=== PATIENT | female | born 1980 | race Caucasian/White ===

== ENCOUNTER → 2017-07-29 | Outpatient (CLI) | payer BC ==
[2017-07-29 11:56] LABS: Basophils % (A) 0 %; CH 30.6; CHCM 31.8; Eosinophils # (A) 0.3 k/uL (0-0.7); Eosinophils % (A) 3 %; HCT 41.3 % (34.0-46.0); HDW 2.16; HGB 13.4 gm/dL (11.4-16.0); Luc # (Auto) 0.17; Luc % (Auto) 2; Lymphocytes # (A) 3.4 k/uL (1.0-4.8); Lymphocytes % (A) 33 %; MCH 31.4 pg (25.0-35.0); MCHC 32.5 g/dL (31.0-37.0); MCV 96.7 fL (80.0-100.0); Mean Platelet Volume 9.9; Monocytes # (A) 0.4 k/uL (0-1.0); Monocytes % (A) 3 %; Neutrophils # (A) 6.1 k/uL (1.3-7.7); Neutrophils % (A) 59 %; RBC 4.27 m/uL (3.80-5.40); RDW 14.8 % (11.5-15.5); WBC 10.3 k/uL (3.8-10.6); WBC (Perox) 10.63
== END | disposition home or self-care (01) ==
LOC: LABPAT 11:10
PROVIDERS: ATTEND Obstetrics & Gynecology Obstetrics
DX: Z01.812 Encounter for preprocedural laboratory examination (principal); N94.6 Dysmenorrhea, unspecified; N92.0 Excessive and frequent menstruation with regular cycle
CPT/HCPCS: 85025

== ENCOUNTER 2017-08-04 09:00 | Day surgery (SDC) | payer BC ==
[2017-07-31 12:07] VITALS: BMI 30.2
[~2017-08-04 09:00] MED LIST: LACTATED RINGERS 1,000 ML IV ONE; MORPHINE SULFATE 10 MG/ML SYRINGE IV PRN; ONDANSETRON 4 MG/2 ML VIAL IVP PRN; Pre Op ABX Message 1 EACH MISC MISCELLANE ONE
[2017-08-04 09:28] VITALS: RESP 16
[2017-08-04] MEDS ORDERED: LIDOCAINE 1% 20 ML VIAL (10MG/ML) FOR IV START INTRADERMA ONE (09:28)
[2017-08-04] MEDS ORDERED: MIDAZOLAM 2 MG/2 ML VIAL ONE (10:30)
[2017-08-04] MEDS ORDERED: PROPOFOL 10 MG/ML 20 ML VIAL IV ONE (10:30)
[2017-08-04] MEDS ORDERED: KETOROLAC 30 MG/ML 1 ML VIAL ONE (10:30)
[2017-08-04] MEDS ORDERED: LIDOCAINE 1% INJ 10MG/ML (20 ML MDV) ONE (10:30)
[2017-08-04] MEDS ORDERED: fentaNYL (PF) 50 MCG/ML 2 ML AMP ONE (10:30)
[2017-08-04] MEDS ORDERED: IBUPROFEN 600 MG TAB PO PRN (10:34)
--- NOTE | 2017-08-04 10:54 | P.OP ---
Date of Procedure: 08/04/17 Preoperative Diagnosis: Menorrhagia, dysmenorrhea Postoperative Diagnosis: Same Surgeon: Nannette Cerrato Estimated Blood Loss (ml): 10 IV fluids (ml): 200 Urine output (ml): 25 Pathology: other (Endometrial curettings) Condition: stable Disposition: PACU Indications for Procedure: Menorrhagia, dysmenorrhea. Ultrasound done prior to surgery revealed a normal- size uterus of 8 cm Operative Findings: Normal proliferative endometrium with normal-appearing ostia Description of Procedure: Patient with significant operating room where general anesthesia was obtained without difficulty. She was prepped and draped in normal sterile fashion in the dorsal lithotomy position. A weighted speculum was placed in the posterior vaginal vault and the bladder was drained with a red rubber catheter. Partially 25 mL of clear yellow urine was obtained. The anterior lip of the cervix was visualized and grasped with a single-tooth tenaculum. The endocervical canal was then dilated and hysteroscopy was performed. A normal- appearing proliferative endometrial cavity was noted the ostia were normal in appearance. No fibroids or polyps are appreciated. Sharp curettage was then performed until gritty texture was noted in all 4 quadrants the uterine cavity. This was then sent to pathology for analysis. The NovaSure device was then opened and performed in the usual fashion. With a cycle length of 2 minutes and a power of 103. After the cycle was complete the device was removed without difficulty. The single-tooth tenaculum was taken off the anterior cervix hemostasis was appreciated all instrument so then removed from the patient's vaginal vault. Patient tolerated procedure well was taken the recovery room awake and in stable condition.
[2017-08-04 11:05] VITALS: TEMP 97.3
[2017-08-04] MEDS: HYDROmorphone 1 MG/ML 1 ML SYRINGE IVP ONE ×2 (11:25→11:39)
[2017-08-04 12:55] VITALS: BP 129/73; PULSE 61
== END 2017-08-04 13:20 | disposition home or self-care (01) ==
LOC: OR 09:00
PROVIDERS: ATTEND Obstetrics & Gynecology Obstetrics
DX: N92.0 Excessive and frequent menstruation with regular cycle (principal); N94.6 Dysmenorrhea, unspecified; R39.15 Urgency of urination; J45.909 Unspecified asthma, uncomplicated; G56.00 Carpal tunnel syndrome, unspecified upper limb; K63.9 Disease of intestine, unspecified; L25.9 Unspecified contact dermatitis, unspecified cause; N80.9 Endometriosis, unspecified; K21.9 Gastro-esophageal reflux disease without esophagitis; N73.9 Female pelvic inflammatory disease, unspecified; L57.0 Actinic keratosis; Z88.0 Allergy status to penicillin; Z88.1 Allergy status to other antibiotic agents; Z91.030 Bee allergy status; Z79.899 Other long term (current) drug therapy; F17.200 Nicotine dependence, unspecified, uncomplicated
CPT/HCPCS: 81025; 88305; 58558; J2250; J2405; J2001; J3010; J1885; J1170; J2704

== ENCOUNTER 2018-02-02 13:16 | Emergency (ER) | payer BC, OTHER ==
[2018-02-02 13:42] VITALS: BP 112/52; PULSE 83; RESP 18; TEMP 98
--- NOTE | 2018-02-02 13:57 | ED ---
Lower Extremity Injury HPI - General Chief Complaint: Extremity Injury, Lower Stated Complaint: leg injury-[facility] Time Seen by Provider: 02/02/18 13:42 Source: patient, RN notes reviewed, old records reviewed Mode of arrival: ambulatory Limitations: no limitations - History of Present Illness Initial Comments: This is a 37-year-old female presents emergency room for evaluation for left leg pain. 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 Patient reports pain with flexion and extension of her foot. Patient reports that the pain is mainly over the medial aspect of the calf. She denies any numbness or tingling. She reports swelling and pressure. - Related Data Home Medications Medication Instructions Recorded Confirmed Dextroamphetamine/Amphetamine 30 mg PO DAILY 07/31/17 02/02/18 [Adderall] PARoxetine [Paxil] 20 mg PO QAM 07/31/17 02/02/18 Previous Rx's Medication Instructions Recorded Acetaminophen-Codeine 300-30mg 1 tab PO Q4H PRN 3 Days #18 tablet 02/02/18 [Tylenol w/codeine #3] Ibuprofen [Motrin] 600 mg PO Q8HR PRN #20 tab 02/02/18 Allergies Allergy/AdvReac Type Severity Reaction Status Date / Time amoxicillin Allergy Unknown Verified 02/02/18 14:02 Penicillins Allergy Unknown Verified 02/02/18 14:02 bees Allergy Anaphylaxis Uncoded 02/02/18 13:43 Review of Systems ROS Statement: Those systems with pertinent positive or pertinent negative responses have been documented in the HPI. ROS Other: All systems not noted in ROS Statement are negative. Past Medical History Past Medical History: GERD/Reflux History of Any Multi-Drug Resistant Organisms: None Reported Past Surgical History: Tubal Ligation Additional Past Surgical History / Comment(s): D&C, colonoscopies x4. Past Anesthesia/Blood Transfusion Reactions: No Reported Reaction Past Psychological History: ADD/ADHD, Depression Smoking Status: Current every day smoker Past Alcohol Use History: None Reported Past Drug Use History: None Reported - Past Family History Mother Family Medical History: No Reported History General Exam - General Exam Comments Initial Comments: 37-year-old female. Alert. No acute distress. Limitations: no limitations General appearance: alert, in no apparent distress Head exam: Present: atraumatic, normocephalic, normal inspection Eye exam: Present: normal appearance, PERRL, EOMI. Absent: scleral icterus, conjunctival injection, periorbital swelling ENT exam: Present: normal exam, mucous membranes moist Neck exam: Present: normal inspection. Absent: tenderness, meningismus, lymphadenopathy Respiratory exam: Present: normal lung sounds bilaterally. Absent: respiratory distress, wheezes, rales, rhonchi, stridor Cardiovascular Exam: Present: regular rate, normal rhythm, normal heart sounds. Absent: systolic murmur, diastolic murmur, rubs, gallop, clicks GI/Abdominal exam: Present: soft, normal bowel sounds. Absent: distended, tenderness, guarding, rebound, rigid Left Lower Leg exam: Present: full ROM, swelling (Patient has tenderness over the medial gastrocnemius muscle). Absent: normal inspection, tenderness, abrasion Ankle exam: Present: normal inspection, full ROM Foot/Toe exam: Present: normal inspection, full ROM Neurovascular tendon exam: Present: no vascular compromise Gait: observed and limited by pain Back exam: Present: normal inspection Course Vital Signs 02/02/18 13:28 Temperature 98.0 F Pulse Rate 83 Respiratory 18 Rate Blood Pressure 112/52 O2 Sat by Pulse 97 Oximetry Disposition Clinical Impression: Gastrocnemius strain, left Disposition: HOME SELF-CARE Condition: Good Instructions: Tendon Rupture (ED) Additional Instructions: Patient has a follow-up with process laboratory specialist. Remain in the splint. Anne with crutches. Take anti-inflammatory medication pain medication. Return to the emergency department if any alarming signs or symptoms occur. Prescriptions: Acetaminophen-Codeine 300-30mg [Tylenol w/codeine #3] 1 tab PO Q4H PRN 3 Days # 18 tablet PRN Reason: Pain Ibuprofen [Motrin] 600 mg PO Q8HR PRN #20 tab PRN Reason: Pain Is patient prescribed a controlled substance at d/c from ED?: No If prescribed controlled substance>3 days was MAPS reviewed?: No When asked, does pt state using other controlled substances?: No Referrals: Milton Bravo MD [Primary Care Provider] - 1-2 days Jett Jean DO [Doctor of Osteopathic Medicine] - 1-2 days Time of Disposition: 15:00
--- NOTE | 2018-02-02 14:20 | XR ---
EXAMINATION TYPE: XR tibia fibula LT DATE OF EXAM: 02/02/2018 COMPARISON: NONE HISTORY: 37-year-old female with pain TECHNIQUE: 2 views FINDINGS: No acute fracture. Knee and ankle articulations appear grossly intact. IMPRESSION: No acute osseous abnormality seen. If soft tissue assessment is indicated, MRI can be performed.
== END 2018-02-02 15:17 | disposition home or self-care (01) ==
LOC: EC 13:16
DX: S86.812A Strain of other muscle(s) and tendon(s) at lower leg level, left leg, initial encounter (principal); F90.9 Attention-deficit hyperactivity disorder, unspecified type; F32.9 Major depressive disorder, single episode, unspecified; F17.200 Nicotine dependence, unspecified, uncomplicated; Z88.0 Allergy status to penicillin; Z91.030 Bee allergy status; Z79.899 Other long term (current) drug therapy; X50.9XXA Other and unspecified overexertion or strenuous movements or postures, initial encounter; Y93.F9 Activity, other caregiving; Y99.0 Civilian activity done for income or pay
CPT/HCPCS: 99284

== ENCOUNTER 2018-02-08 02:07 | Emergency (ER) | payer BC ==
[2018-02-08 02:16] VITALS: RESP 16
[2018-02-08] MEDS ORDERED: SODIUM CHLORIDE 0.9% 1,000 ML IV STA (02:19)
[2018-02-08] MEDS ORDERED: KETOROLAC 30 MG/ML 1 ML VIAL IVP STA (02:19)
[2018-02-08 02:57] LABS: Basophils # (A) 0.1 k/uL (0-0.2); Basophils % (A) 1 %; Eosinophils # (A) 0.4 k/uL (0-0.7); Eosinophils % (A) 4 %; HCT 41.6 % (34.0-46.0); Lymphocytes # (A) 3.5 k/uL (1.0-4.8); Lymphocytes % (A) 37 %; MCH 32.1 pg (25.0-35.0); MCHC 33.6 g/dL (31.0-37.0); MCV 95.4 fL (80.0-100.0); Mean Platelet Volume 9.1; Monocytes # (A) 0.4 k/uL (0-1.0); Monocytes % (A) 5 %; Neutrophils % (A) 52 %; Platelet Count 191 k/uL (150-450); RBC 4.36 m/uL (3.80-5.40); RDW 13.3 % (11.5-15.5); WBC 9.5 k/uL (3.8-10.6)
[2018-02-08 03:07] LABS: ALT 28 U/L (9-52); AST 23 U/L (14-36); Albumin 3.6 g/dL (3.5-5.0); Alkaline Phosphatase 44 U/L (38-126); Amylase 31 U/L (30-110); Anion Gap 10 mmol/L; Blood Urea Nitrogen 16 mg/dL (7-17); Calcium 9.1 mg/dL (8.4-10.2); Carbon Dioxide 21 mmol/L (22-30); Chloride 109 mmol/L (98-107); Glucose 109 mg/dL (74-99); Lipase 58 U/L (23-300); Potassium 4.5 mmol/L (3.5-5.1); Sodium 140 mmol/L (137-145); Total Bilirubin 0.2 mg/dL (0.2-1.3); Total Protein 5.9 g/dL (6.3-8.2)
--- NOTE | 2018-02-08 03:17 | ED ---
Abdominal Pain HPI - General Chief Complaint: Abdominal Pain Stated Complaint: R flank pain Time Seen by Provider: 02/08/18 02:18 Source: patient, RN notes reviewed Mode of arrival: ambulatory Limitations: no limitations - History of Present Illness Initial Comments: This a 37-year-old female presents emergency Department chief complaint of right flank pain. Patient states this started earlier today send onset this evening worse. She states nothing makes it feel better or worse. She did notice some blood in her urine. Patient denies any vomiting states she's nauseated. Denies any diarrhea constipation. She's had prior tubal ligation denies any vaginal bleeding no vaginal discharge. Denies chest pain, shortness breath, headache or dizziness. - Related Data Home Medications Medication Instructions Recorded Confirmed Dextroamphetamine/Amphetamine 30 mg PO DAILY 07/31/17 02/02/18 [Adderall] PARoxetine [Paxil] 20 mg PO QAM 07/31/17 02/02/18 Previous Rx's Medication Instructions Recorded Acetaminophen-Codeine 300-30mg 1 tab PO Q4H PRN 3 Days #18 tablet 02/02/18 [Tylenol w/codeine #3] Ibuprofen [Motrin] 600 mg PO Q8HR PRN #20 tab 02/02/18 Allergies Allergy/AdvReac Type Severity Reaction Status Date / Time amoxicillin Allergy Unknown Verified 02/02/18 14:02 Penicillins Allergy Unknown Verified 02/02/18 14:02 bees Allergy Anaphylaxis Uncoded 02/02/18 13:43 Review of Systems ROS Statement: Those systems with pertinent positive or pertinent negative responses have been documented in the HPI. ROS Other: All systems not noted in ROS Statement are negative. Past Medical History Past Medical History: GERD/Reflux History of Any Multi-Drug Resistant Organisms: None Reported Past Surgical History: Tubal Ligation Additional Past Surgical History / Comment(s): D&C, colonoscopies x4. Past Anesthesia/Blood Transfusion Reactions: No Reported Reaction Past Psychological History: ADD/ADHD, Depression Smoking Status: Current every day smoker Past Alcohol Use History: None Reported Past Drug Use History: None Reported - Past Family History Mother Family Medical History: No Reported History General Exam Limitations: no limitations General appearance: alert, in no apparent distress Head exam: Present: atraumatic, normocephalic, normal inspection Respiratory exam: Present: normal lung sounds bilaterally. Absent: respiratory distress, wheezes, rales, rhonchi, stridor Cardiovascular Exam: Present: regular rate, normal rhythm, normal heart sounds. Absent: systolic murmur, diastolic murmur, rubs, gallop, clicks GI/Abdominal exam: Present: soft, tenderness, normal bowel sounds. Absent: distended, guarding, rebound, rigid Back exam: Absent: CVA tenderness (R), CVA tenderness (L) Neurological exam: Present: alert, oriented X3, CN II-XII intact Skin exam: Present: warm, dry, intact, normal color. Absent: rash Course Vital Signs 02/08/18 02:10 Temperature 97.2 F L Pulse Rate 84 Respiratory 16 Rate Blood Pressure 117/56 O2 Sat by Pulse 98 Oximetry Medical Decision Making - Medical Decision Making 37-year-old female presents from for abdominal pain, flank pain. Patient had lab work, x-ray and CT which were all unremarkable. The only evident finding was moderate constipation primary on the right side of the colon. She is advised to increase her fluids, use [id number] laxatives and stool softener as directed. Return parameters were discussed. - Lab Data Result diagrams: 02/08/18 02:40 02/08/18 02:40 Lab Results 02/08/18 02/08/18 02/08/18 Range/Units 02:18 02:40 02:40 WBC 9.5 (3.8-10.6) k/uL RBC 4.36 (3.80-5.40) m/uL Hgb 14.0 (11.4-16.0) gm/dL Hct 41.6 (34.0-46.0) % MCV 95.4 (80.0-100.0) fL MCH 32.1 (25.0-35.0) pg MCHC 33.6 (31.0-37.0) g/dL RDW 13.3 (11.5-15.5) % Plt Count 191 (150-450) k/uL Neutrophils % 52 % Lymphocytes % 37 % Monocytes % 5 % Eosinophils % 4 % Basophils % 1 % Neutrophils # 5.0 (1.3-7.7) k/uL Lymphocytes # 3.5 (1.0-4.8) k/uL Monocytes # 0.4 (0-1.0) k/uL Eosinophils # 0.4 (0-0.7) k/uL Basophils # 0.1 (0-0.2) k/uL Sodium 140 (137-145) mmol/L Potassium 4.5 (3.5-5.1) mmol/L Chloride 109 H (98-107) mmol/L Carbon Dioxide 21 L (22-30) mmol/L Anion Gap 10 mmol/L BUN 16 (7-17) mg/dL Creatinine 0.60 (0.52-1.04) mg/dL Est GFR (CKD-EPI)AfAm >90 (>60 ml/min/1.73 sqM) Est GFR (CKD-EPI)NonAf >90 (>60 ml/min/1.73 sqM) Glucose 109 H (74-99) mg/dL Calcium 9.1 (8.4-10.2) mg/dL Total Bilirubin 0.2 (0.2-1.3) mg/dL AST 23 (14-36) U/L ALT 28 (9-52) U/L Alkaline Phosphatase 44 (38-126) U/L Total Protein 5.9 L (6.3-8.2) g/dL Albumin 3.6 (3.5-5.0) g/dL Amylase 31 (30-110) U/L Lipase 58 (23-300) U/L Urine Color Yellow Urine Appearance Clear (Clear) Urine pH 6.5 (5.0-8.0) Ur Specific [place] 1.024 (1.001-1.035) Urine Protein Negative (Negative) Urine Glucose (UA) Negative (Negative) Urine Ketones Negative (Negative) Urine Blood Negative (Negative) Urine Nitrite Negative (Negative) Urine Bilirubin Negative (Negative) Urine Urobilinogen 2.0 (<2.0) mg/dL Ur Leukocyte Esterase Trace H (Negative) Urine RBC 4 (0-5) /hpf Urine WBC 2 (0-5) /hpf Ur Squamous Epith Cells 2 (0-4) /hpf Urine Bacteria Rare H (None) /hpf Urine Mucus Rare H (None) /hpf Disposition Clinical Impression: Abdominal pain Disposition: HOME SELF-CARE Condition: Stable Instructions: Abdominal Pain (ED) Additional Instructions: Please return to the Emergency Department if symptoms worsen or any other concerns. Is patient prescribed a controlled substance at d/c from ED?: No Referrals: Milton Bravo MD [Primary Care Provider] - 1-2 days Time of Disposition: 04:05
--- NOTE | 2018-02-08 03:23 | XR ---
EXAMINATION TYPE: XR KUB DATE OF EXAM: 02/08/2018 COMPARISON: NONE HISTORY: Umbilical pain TECHNIQUE: 2 views FINDINGS: Bowel gas pattern is normal. There is no sign of intestinal obstruction or pneumoperitoneum . Fecal pattern is normal. There is no sign of a mass. There are no pathologic calcifications over th e kidneys. Lung bases are clear. IMPRESSION: Nonacute abdomen.
[2018-02-08 03:26] LABS: Appearance,Urine Clear (Clear); Bacteria,Urine Rare /hpf; Bilirubin,Urine Negative (Negative); Blood,Urine Negative (Negative); Color,Urine Yellow; Glucose,Urine (UA) Negative (Negative); Ketones,Urine Negative (Negative); Leukocyte Esterase,Urine Trace (Negative); Mucus,Urine Rare /hpf; Nitrite,Urine Negative (Negative); PH, Urine 6.5 (5.0-8.0); Protein,Urine Negative (Negative); RBC,Urine 4 /hpf (0-5); Specific Gravity,Urine 1.024 (1.001-1.035); Squamous Epithelial Cell,Urine 2 /hpf (0-4); WBC,Urine 2 /hpf (0-5)
--- NOTE | 2018-02-08 03:58 | CT ---
EXAMINATION TYPE: CT abdomen pelvis wo con DATE OF EXAM: 02/08/2018 COMPARISON: 07/10/1715 HISTORY: CT DLP: 590.80 mGycm Automated exposure control for dose reduction was used. TECHNIQUE: Helical acquisition of images was performed from the lung bases through the pelvis. FINDINGS: The lung bases are clear. There is no pleural effusion. Heart size is normal. There is no pericardial effusion. Liver spleen pancreas gallbladder appear normal. Bile ducts are not dilated. There is no adrenal mass . Kidneys have normal size and contour. There is no hydronephrosis. Ureters are not dilated. There is no retroperitoneal adenopathy. Bladder distends smoothly. Uterus is anteverted. The bony structures are intact. There is no evidence of a pelvic mass. There is no ascites. I see no intestinal wall thic kening. There are no dilated loops. Appendix appears normal. IMPRESSION: NEGATIVE CT SCAN OF THE ABDOMEN AND PELVIS. NO ADVERSE CHANGE COMPARED TO OLD EXAM.
[2018-02-08 04:41] VITALS: BP 94/58; PULSE 68; TEMP 97.9
== END 2018-02-08 04:41 | disposition home or self-care (01) ==
LOC: EC 02:07
DX: R10.9 Unspecified abdominal pain (principal); K59.00 Constipation, unspecified; K21.9 Gastro-esophageal reflux disease without esophagitis; F90.9 Attention-deficit hyperactivity disorder, unspecified type; F32.9 Major depressive disorder, single episode, unspecified; Z79.899 Other long term (current) drug therapy; F17.200 Nicotine dependence, unspecified, uncomplicated; Z88.0 Allergy status to penicillin; Z91.030 Bee allergy status
CPT/HCPCS: 36415; 80053; 82150; 83690; 85025; 81001; 74018; 74176; 99284; 96374; 96361; J1885

== ENCOUNTER 2018-07-15 13:36 | Emergency (ER) | payer BC, OTHER ==
[2018-07-15 13:52] VITALS: TEMP 98
[2018-07-15] MEDS ORDERED: MORPHINE SULFATE 2 MG/ML SYRINGE IVP STA (14:04)
[2018-07-15] MEDS ORDERED: SODIUM CHLORIDE 0.9% 1,000 ML IV STA (14:04)
[2018-07-15] MEDS ORDERED: ONDANSETRON 4 MG/2 ML VIAL IVP STA (14:04)
[2018-07-15] MEDS ORDERED: KETOROLAC 30 MG/ML 1 ML VIAL IVP STA (14:04)
--- NOTE | 2018-07-15 14:20 | ED ---
Abdominal Pain HPI - General Chief Complaint: Abdominal Pain Stated Complaint: right side pain Time Seen by Provider: 07/15/18 13:55 Source: patient, RN notes reviewed, old records reviewed, Caregiver Mode of arrival: ambulatory Limitations: no limitations - History of Present Illness Initial Comments: Patient is a 37-year-old female reports in complaining of 3 days of right lower quadrant abdominal pain. Patient reports initially thought it was later seen by chiropractor. She states that they sent here for further evaluation and rule out appendicitis. Patient reports that she's been having feeling nauseated. Denies a specific fevers or chills. She denies any bloody stools or bloody emesis. - Related Data Home Medications Medication Instructions Recorded Confirmed Dextroamphetamine/Amphetamine 30 mg PO DAILY 07/31/17 07/15/18 [Adderall] PARoxetine [Paxil] 20 mg PO QAM 07/31/17 07/15/18 Previous Rx's Medication Instructions Recorded Ciprofloxacin HCl [Cipro] 500 mg PO Q12HR 10 Days tab 07/15/18 metroNIDAZOLE [Flagyl] 500 mg PO TID #30 tab 07/15/18 predniSONE 10 mg PO DAILY #15 tab 07/15/18 Allergies Allergy/AdvReac Type Severity Reaction Status Date / Time amoxicillin Allergy Unknown Verified 07/15/18 14:42 Penicillins Allergy Unknown Verified 07/15/18 14:42 bees Allergy Anaphylaxis Uncoded 07/15/18 13:52 Review of Systems ROS Statement: Those systems with pertinent positive or pertinent negative responses have been documented in the HPI. ROS Other: All systems not noted in ROS Statement are negative. Past Medical History Past Medical History: GERD/Reflux History of Any Multi-Drug Resistant Organisms: None Reported Past Surgical History: Tubal Ligation, Uterine Ablation Additional Past Surgical History / Comment(s): D&C, colonoscopies x4. Past Anesthesia/Blood Transfusion Reactions: No Reported Reaction Past Psychological History: ADD/ADHD, Depression Smoking Status: Current every day smoker Past Alcohol Use History: None Reported Past Drug Use History: None Reported - Past Family History Mother Family Medical History: No Reported History General Exam - General Exam Comments Initial Comments: This is a 37-year-old female. Alert and oriented. Patient appears in no acute distress. Limitations: no limitations General appearance: alert, in no apparent distress Head exam: Present: atraumatic, normocephalic, normal inspection Eye exam: Present: normal appearance, PERRL, EOMI. Absent: scleral icterus, conjunctival injection, periorbital swelling ENT exam: Present: normal exam, mucous membranes moist Neck exam: Present: normal inspection. Absent: tenderness, meningismus, lymphadenopathy Respiratory exam: Present: normal lung sounds bilaterally. Absent: respiratory distress, wheezes, rales, rhonchi, stridor Cardiovascular Exam: Present: regular rate, normal rhythm, normal heart sounds. Absent: systolic murmur, diastolic murmur, rubs, gallop, clicks GI/Abdominal exam: Present: soft, tenderness (Right lower quadrant tenderness.) , normal bowel sounds. Absent: distended, guarding, rebound, rigid Course Vital Signs 07/15/18 07/15/18 13:50 15:43 Temperature 98.0 F Pulse Rate 98 73 Respiratory 20 18 Rate Blood Pressure 112/65 105/65 O2 Sat by Pulse 99 97 Oximetry - Reevaluation(s) Reevaluation #1: 07/15/18 16:11 Patient is related at this time, Patient does report that she has improved symptoms with the complaints of chest pain. Order an EKG. This was unremarkable. Normal sinus rhythm. Medical Decision Making - Medical Decision Making Patient's a 37-year-old female present is same chief complaint of right lower quadrant abdominal pain. At this time patient's labwork was reviewed with resident unremarkable with has mild leukocytosis. At this time patient's also a slight tach as well. We will do urine culture. She was quite tender on the right lower quadrant. Computed tomography scan. Evidence of inflammatory bowel disease changes near the cecum. Likely related to Patient tenderness. Reports that she's been told that she thought that she had Crohn's past. She denies any bloody stools. This time Patient will be started on an erratic history for colitis as well as steroids. I discussed the EKG was reviewed and normal swelling. Patient agrees treatment plan will comply. Return parameters were discussed. - Lab Data Result diagrams: 07/15/18 14:20 07/15/18 14:20 Lab Results 07/15/18 07/15/18 07/15/18 Range/Units 14:20 14:20 14:20 WBC 11.0 H (3.8-10.6) k/uL RBC 4.68 (3.80-5.40) m/uL Hgb 15.3 (11.4-16.0) gm/dL Hct 45.3 (34.0-46.0) % MCV 96.9 (80.0-100.0) fL MCH 32.8 (25.0-35.0) pg MCHC 33.9 (31.0-37.0) g/dL RDW 13.0 (11.5-15.5) % Plt Count 174 (150-450) k/uL Neutrophils % 69 % Lymphocytes % 22 % Monocytes % 5 % Eosinophils % 3 % Basophils % 0 % Neutrophils # 7.6 (1.3-7.7) k/uL Lymphocytes # 2.5 (1.0-4.8) k/uL Monocytes # 0.5 (0-1.0) k/uL Eosinophils # 0.3 (0-0.7) k/uL Basophils # 0.1 (0-0.2) k/uL Sodium 139 (137-145) mmol/L Potassium 4.2 (3.5-5.1) mmol/L Chloride 111 H (98-107) mmol/L Carbon Dioxide 21 L (22-30) mmol/L Anion Gap 7 mmol/L BUN 11 (7-17) mg/dL Creatinine 0.67 (0.52-1.04) mg/dL Est GFR (CKD-EPI)AfAm >90 (>60 ml/min/1.73 sqM) Est GFR (CKD-EPI)NonAf >90 (>60 ml/min/1.73 sqM) Glucose 95 (74-99) mg/dL Calcium 8.9 (8.4-10.2) mg/dL Total Bilirubin 0.4 (0.2-1.3) mg/dL AST 19 (14-36) U/L ALT 23 (9-52) U/L Alkaline Phosphatase 36 L (38-126) U/L Total Protein 5.6 L (6.3-8.2) g/dL Albumin 3.3 L (3.5-5.0) g/dL Amylase 32 (30-110) U/L Lipase 61 (23-300) U/L Urine Color Urine Appearance (Clear) Urine pH (5.0-8.0) Ur Specific [place] (1.001-1.035) Urine Protein (Negative) Urine Glucose (UA) (Negative) Urine Ketones (Negative) Urine Blood (Negative) Urine Nitrite (Negative) Urine Bilirubin (Negative) Urine Urobilinogen (<2.0) mg/dL Ur Leukocyte Esterase (Negative) Urine RBC (0-5) /hpf Urine WBC (0-5) /hpf Ur Squamous Epith Cells (0-4) /hpf Urine HCG, Qual Not Detected (Not Detectd) 07/15/18 Range/Units 14:20 WBC (3.8-10.6) k/uL RBC (3.80-5.40) m/uL Hgb (11.4-16.0) gm/dL Hct (34.0-46.0) % MCV (80.0-100.0) fL MCH (25.0-35.0) pg MCHC (31.0-37.0) g/dL RDW (11.5-15.5) % Plt Count (150-450) k/uL Neutrophils % % Lymphocytes % % Monocytes % % Eosinophils % % Basophils % % Neutrophils # (1.3-7.7) k/uL Lymphocytes # (1.0-4.8) k/uL Monocytes # (0-1.0) k/uL Eosinophils # (0-0.7) k/uL Basophils # (0-0.2) k/uL Sodium (137-145) mmol/L Potassium (3.5-5.1) mmol/L Chloride (98-107) mmol/L Carbon Dioxide (22-30) mmol/L Anion Gap mmol/L BUN (7-17) mg/dL Creatinine (0.52-1.04) mg/dL Est GFR (CKD-EPI)AfAm (>60 ml/min/1.73 sqM) Est GFR (CKD-EPI)NonAf (>60 ml/min/1.73 sqM) Glucose (74-99) mg/dL Calcium (8.4-10.2) mg/dL Total Bilirubin (0.2-1.3) mg/dL AST (14-36) U/L ALT (9-52) U/L Alkaline Phosphatase (38-126) U/L Total Protein (6.3-8.2) g/dL Albumin (3.5-5.0) g/dL Amylase (30-110) U/L Lipase (23-300) U/L Urine Color Yellow Urine Appearance Turbid H (Clear) Urine pH 8.0 (5.0-8.0) Ur Specific [place] 1.017 (1.001-1.035) Urine Protein Trace H (Negative) Urine Glucose (UA) Negative (Negative) Urine Ketones Negative (Negative) Urine Blood Negative (Negative) Urine Nitrite Negative (Negative) Urine Bilirubin Negative (Negative) Urine Urobilinogen 2.0 (<2.0) mg/dL Ur Leukocyte Esterase Large H (Negative) Urine RBC 5 (0-5) /hpf Urine WBC 8 H (0-5) /hpf Ur Squamous Epith Cells 6 H (0-4) /hpf Urine HCG, Qual (Not Detectd) - EKG Data Rate: normal 07/15/18 16:12 EKG performed at 1607 shows sinus rhythm 72 bpm.. Vitals 174 ms. QRS ration 82. QTQTC's were successful 40 ms. - Radiology Data Radiology results: report reviewed No CT evidence of appendicitis or right-sided hydronephrosis findings suggest mild colitis of the cecum with submucosal fat deposition in the terminal ileum that may relate to chronic inflammatory bowel disease. The possibility of Crohn 's disease should be considered. Additionally there are multiple loops of left mid abdominal small bowel demonstrated bowel wall thickening that could relate to explain distention or mild enteritis. Overall systemic sacroiliitis joint sclerosis pronounced for patient's age. This can also be seen inflammatory bowel disease. Disposition Clinical Impression: Colitis, Inflammatory bowel disease Disposition: HOME SELF-CARE Condition: Good Instructions: Colitis (ED) Additional Instructions: Patient should've clear liquid diet for the next 24-48 hours. Follow-up with PCP, and GI. Return to the emergency department if any alarming signs or symptoms occur. Prescriptions: Ciprofloxacin HCl [Cipro] 500 mg PO Q12HR 10 Days tab metroNIDAZOLE [Flagyl] 500 mg PO TID #30 tab predniSONE 10 mg PO DAILY #15 tab Is patient prescribed a controlled substance at d/c from ED?: No Referrals: Milton Bravo MD [Primary Care Provider] - 1-2 days Time of Disposition: 16:16
[2018-07-15 14:46] LABS: Basophils # (A) 0.1 k/uL (0-0.2); Basophils % (A) 0 %; Eosinophils # (A) 0.3 k/uL (0-0.7); Eosinophils % (A) 3 %; HCT 45.3 % (34.0-46.0); HGB 15.3 gm/dL (11.4-16.0); Lymphocytes # (A) 2.5 k/uL (1.0-4.8); Lymphocytes % (A) 22 %; MCH 32.8 pg (25.0-35.0); MCHC 33.9 g/dL (31.0-37.0); MCV 96.9 fL (80.0-100.0); Mean Platelet Volume 9.4; Monocytes # (A) 0.5 k/uL (0-1.0); Monocytes % (A) 5 %; Neutrophils # (A) 7.6 k/uL (1.3-7.7); Neutrophils % (A) 69 %; Platelet Count 174 k/uL (150-450); RBC 4.68 m/uL (3.80-5.40)
[2018-07-15 14:54] LABS: Appearance,Urine Turbid (Clear); Bilirubin,Urine Negative (Negative); Blood,Urine Negative (Negative); Color,Urine Yellow; Glucose,Urine (UA) Negative (Negative); Ketones,Urine Negative (Negative); Leukocyte Esterase,Urine Large (Negative); Nitrite,Urine Negative (Negative); Protein,Urine Trace (Negative); RBC,Urine 5 /hpf (0-5); Specific Gravity,Urine 1.017 (1.001-1.035); Squamous Epithelial Cell,Urine 6 /hpf (0-4); WBC,Urine 8 /hpf (0-5)
[2018-07-15 14:56] LABS: ALT 23 U/L (9-52); AST 19 U/L (14-36); Albumin 3.3 g/dL (3.5-5.0); Alkaline Phosphatase 36 U/L (38-126); Amylase 32 U/L (30-110); Anion Gap 7 mmol/L; Blood Urea Nitrogen 11 mg/dL (7-17); Calcium 8.9 mg/dL (8.4-10.2); Carbon Dioxide 21 mmol/L (22-30); Chloride 111 mmol/L (98-107); Glucose 95 mg/dL (74-99); Lipase 61 U/L (23-300); Potassium 4.2 mmol/L (3.5-5.1); Sodium 139 mmol/L (137-145); Total Bilirubin 0.4 mg/dL (0.2-1.3); Total Protein 5.6 g/dL (6.3-8.2)
--- NOTE | 2018-07-15 15:14 | CT ---
EXAMINATION TYPE: CT abdomen pelvis w con DATE OF EXAM: 07/15/2018 HISTORY: Right flank to right groin pain. CT DLP: 796.8mGycm Automated Exposure Control for Dose Reduction was Utilized. CONTRAST: CT scan of the abdomen and pelvis is performed with IV Contrast, patient injected with 100 mL of Isov ue 300. COMPARISON: 02/08/2018 FINDINGS: Exam is slightly limited secondary to patient motion. LUNG BASES: Minimal bibasilar subsegmental dependent atelectasis is present. LIVER/GB: No significant abnormality is appreciated. No cholelithiasis. PANCREAS: No significant abnormality is seen. SPLEEN: No significant abnormality is seen. ADRENALS: No significant abnormality is seen. KIDNEYS: No significant abnormality is seen. BOWEL: There are a few clustered loops of small bowel within the mid abdomen and left upper quadrant and string small bowel wall thickening of up to 1.2 cm. These are prominent but nondilated in size. A ppendix is air-filled and within normal limits. No terminal ileum is seen retrocecally demonstrating submucosal fat deposition. There is very subtle inflammatory fat stranding surrounding the cecum on i mage 45 through 47. No dilated large bowel. LYMPH NODES: No greater than 1cm abdominal or pelvic lymph nodes are appreciated. OSSEOUS STRUCTURES: Overall symmetric sacroiliac joint sclerosis is seen. OTHER: Very small fat filled umbilical hernia is present. IMPRESSION: 1. No CT evidence of appendicitis or right-sided hydronephrosis. Findings suggest very mild colitis of the cecum with submucosal fat deposition of the terminal ileum that may relate to chronic inflamma tory bowel disease. The possibility of Crohn's disease should be considered. Additionally there are m ultiple loops of left mid abdominal small bowel demonstrate bowel wall thickening that could relate t o incomplete distention or mild enteritis. 2. Overall symmetric sacroiliac joint sclerosis, pronounced for the patient's age. This can also be s een in inflammatory bowel disease.
[2018-07-15 15:44] VITALS: BP 105/65; PULSE 73; RESP 18
== END 2018-07-15 16:36 | disposition home or self-care (01) ==
LOC: EC 13:36
DX: K52.9 Noninfective gastroenteritis and colitis, unspecified (principal); D72.829 Elevated white blood cell count, unspecified; R00.0 Tachycardia, unspecified; R07.9 Chest pain, unspecified; Z87.19 Personal history of other diseases of the digestive system; F32.9 Major depressive disorder, single episode, unspecified; F90.9 Attention-deficit hyperactivity disorder, unspecified type; F17.200 Nicotine dependence, unspecified, uncomplicated; Z79.899 Other long term (current) drug therapy; Z88.0 Allergy status to penicillin; Z91.030 Bee allergy status
CPT/HCPCS: 36415; 93005; 80053; 82150; 83690; 85025; 81001; 81025; 74177; 99285; 96374; 96375 ×2; 96361 ×2; J2405; J1885; J2270; Q9967

== ENCOUNTER → 2019-04-11 | Outpatient (CLI) | payer BC ==
[2019-04-11 11:32] LABS: Basophils % (A) 1 %; Eosinophils # (A) 0.2 k/uL (0-0.7); Eosinophils % (A) 2 %; HCT 44.9 % (34.0-46.0); HGB 14.4 gm/dL (11.4-16.0); Lymphocytes % (A) 25 %; MCH 31.3 pg (25.0-35.0); MCHC 32.1 g/dL (31.0-37.0); MCV 97.5 fL (80.0-100.0); Mean Platelet Volume 9.7; Monocytes # (A) 0.4 k/uL (0-1.0); Monocytes % (A) 4 %; Neutrophils # (A) 5.5 k/uL (1.3-7.7); Neutrophils % (A) 67 %; Platelet Count 173 k/uL (150-450); RBC 4.61 m/uL (3.80-5.40); RDW 13.4 % (11.5-15.5); WBC 8.2 k/uL (3.8-10.6)
[2019-04-11 11:40] LABS: African American GFR (CKD) >90 (>60 ml/min/1.73 sqM); Anion Gap 9 mmol/L; Blood Urea Nitrogen 14 mg/dL (7-17); Carbon Dioxide 24 mmol/L (22-30); Chloride 106 mmol/L (98-107); Glucose 69 mg/dL (74-99); Potassium 4.3 mmol/L (3.5-5.1); Sodium 139 mmol/L (137-145)
== END | disposition home or self-care (01) ==
LOC: LABPAT 10:50
PROVIDERS: ATTEND Obstetrics & Gynecology Obstetrics
DX: Z01.812 Encounter for preprocedural laboratory examination (principal); R10.2 Pelvic and perineal pain; N94.6 Dysmenorrhea, unspecified; N80.9 Endometriosis, unspecified
CPT/HCPCS: 36415; 80051; 82565; 82947; 84520; 85025; 87086

== ENCOUNTER 2019-04-19 05:46 | Day surgery (SDC) | payer BC, OTHER ==
--- NOTE | 2019-04-18 14:06 | HP ---
HISTORY AND PHYSICAL DATE OF SURGERY: 04/19/2019 CHIEF COMPLAINT: Pelvic pain. HISTORY OF PRESENT ILLNESS: This is a very pleasant 38-year-old, 3, para 2-0-1-2, that presented for evaluation of pelvic pain. She states the pain started about 2 months ago and is extremely painful for 3-4 days of the month. Of note, patient had an endometrial ablation done approximately 2 years ago and did well initially but is now noting this extreme pain. Patient had an ultrasound done at the end of January which was normal with no abnormal findings. The patient is requesting definitive treatment given this pain is affecting her daily life. She does desire ovarian conservation. She denies any bowel or bladder concerns. No changes in vaginal discharge or STD concerns. PAST MEDICAL HISTORY: Significant for asthma, Carpal tunnel, contact dermatitis, endometriosis, GERD, pelvic inflammatory disease. PAST SURGICAL HISTORY: She had a D and C in 2004. She had her endometrial ablation with tubal ligation done in July 2008. MEDICATIONS: She is on: 1. Adderall 30 mg. 2. Ditropan XL 5 mg. 3. She has an EpiPen as needed. 4. She is on paroxetine 20 mg daily. ALLERGIES: She is allergic to AMOXICILLIN, BEES, PENICILLIN. FAMILY MEDICAL HISTORY: Noncontributory. REPRODUCTIVE HISTORY: As stated she is a 3, para 2-0-1-2 with 2 vaginal deliveries in 2005 and 2007. She had an endometrial ablation done as does not cycle but notes extreme dysmenorrhea for multiple days throughout the month. SOCIAL HISTORY: She is a current half pack a day smoker. She is and is a [employer] driver. She denies alcohol or illicit drug use. REVIEW OF SYSTEMS: 1. She denies body aches or night sweats. 2. She denies any changes in vision. No headaches or sinus congestion. She denies any changes in her breast exam. 3. She denies chest pain or syncope. 4. She denies shortness of breath or increased wheezing cough. 5. She denies nausea, vomiting, diarrhea, constipation, but she does note abdominal pain. 6. Genitourinary, she admits to dysmenorrhea but denies urinary urgency, frequency, or dysuria. 7. She denies joint pain or muscle pain. 8. She denies anxiety or depression. 9. Vital signs are noted to be stable. PHYSICAL EXAM: In general, this is a well-nourished, well-developed, alert female in no acute distress. On gastrointestinal exam, her abdomen is nontender to palpation. Her lungs are noted to be clear to auscultation. Her heart has a regular rate and rhythm. Genitourinary, her bladder is nontender to palpation. Her cervix appears healthy. No lesions are noted. Her uterus is nontender and mobile. Her adnexa is noted to be nontender with no palpable masses. ASSESSMENT: 1. Pelvic pain. 2. Endometriosis. PLAN: Given she had an endometrial ablation in the past, I am suspicious for post ablation pelvic pain. She did have a normal ultrasound with no signs of hematometra. Discussed robotic-assisted vaginal hysterectomy with ovarian conservation and diagnostic cystoscopy. If there are abnormalities grossly normal on the ovaries, they will be removed at the time of the procedure. Procedure is reviewed. All questions are answered. Risks are reviewed including, but not limited to infection, bleeding, damage to bladder, bowel, ureteric or other pelvic structures. The patient states understanding and wishes to proceed with this procedure. MMODL / IJN: [id number] /
[~2019-04-19 05:46] MED LIST changes: +CLINDAMYCIN 900 MG in DEXTROSE 5% IN WATER 50 ML IVPB ONE; +DEXAMETHASONE SOD PHOSPHATE 10 MG/ML 1 ML VIAL IV ONE; +GENTAMICIN 300 MG in SODIUM CHLORIDE 0.9% 100 ML IVPB ONE; -LACTATED RINGERS 1,000 ML IV ONE; +LACTATED RINGERS 1,000 ML IV SCH; +MIDAZOLAM 2 MG/2 ML VIAL IV PRN; -MORPHINE SULFATE 10 MG/ML SYRINGE IV PRN; +ONDANSETRON 4 MG/2 ML VIAL IVP ONE; -ONDANSETRON 4 MG/2 ML VIAL IVP PRN; -Pre Op ABX Message 1 EACH MISC MISCELLANE ONE; +SCOPOLAMINE 1.5MG/72HR PATCH TRANSDERM ONE
[2019-04-19] MEDS ORDERED: LIDOCAINE 1% 20 ML VIAL (10MG/ML) FOR IV START INTRADERMA ONE (06:14)
[2019-04-19] MEDS ORDERED: LACTATED RINGERS 1,000 ML IV ONE (06:14)
[2019-04-19] MEDS ORDERED: BUPIVACAINE (PF) 0.5% 30 ML VIAL SQ ONE (07:22)
[2019-04-19] MEDS ORDERED: GLYCOPYRROLATE 0.2 MG/ML 2 ML VIAL ONE (07:33)
[2019-04-19] MEDS ORDERED: ONDANSETRON 4 MG/2 ML VIAL ONE (07:33)
[2019-04-19] MEDS ORDERED: LIDOCAINE 1% INJ 10MG/ML (20 ML MDV) ONE (07:33)
[2019-04-19] MEDS ORDERED: MIDAZOLAM 2 MG/2 ML VIAL ONE (07:33)
[2019-04-19] MEDS ORDERED: fentaNYL (PF) 50 MCG/ML 2 ML AMP ONE (07:33)
[2019-04-19] MEDS ORDERED: PROPOFOL 10 MG/ML 20 ML VIAL IV ONE (07:33)
[2019-04-19] MEDS ORDERED: NEOSTIGMINE 1 MG/ML 10 ML VIAL ONE (07:33)
[2019-04-19] MEDS ORDERED: ALBUTEROL INHALER 60 PUFF/8 GM INHALER INHALATION ONE (07:33)
[2019-04-19] MEDS ORDERED: ROCURONIUM BROMIDE 10 MG/ML 10 ML VIAL IV ONE (07:33)
[2019-04-19] MEDS ORDERED: SIMETHICONE 80 MG CHEWABLE PO PRN (09:04)
--- NOTE | 2019-04-19 09:26 | P.OP ---
Date of Procedure: 04/19/19 Preoperative Diagnosis: Pelvic pain, post-ablation syndrome Postoperative Diagnosis: Same, suspected adenomyosis Procedure(s) Performed: Robotic-assisted vaginal hysterectomy with right salpingectomy, diagnostic cystoscopy Anesthesia: DEBBIE Surgeon: Nannette Cerrato Demonstrator Sales #1: Miriam Davidson Estimated Blood Loss (ml): 15 IV fluids (ml): 400 Urine output (ml): 175 Pathology: other (Uterus, cervix, right fallopian tube) Condition: stable Disposition: PACU Indications for Procedure: This is a pleasant 38-year-old female that had an endometrial ablation of January 2 years ago. Patient has noted an increase in cyclical pelvic pain that has made it on bearable at times. Patient desires definitive treatment with hysterectomy and ovarian conservation. Operative Findings: Enlarged boggy uterus with scarring to the left pelvic sidewall, bilateral ovaries appear grossly normal, normal cystoscopy after procedure was completed. Description of Procedure: Patient was seen in the preoperative area and informed consent was obtained. Patient was counseled on the risks of surgery once again including but not limited to infection, bleeding, damage to bladder, bowel, ureteric, other pelvic structures. Patient stated understanding and wished to proceed. Next para patient was taken operating suite where general anesthesia was obtained without difficulty by the anesthesia department. She was prepped and draped in the normal sterile fashion in the dorsal lithotomy position. A Lopez catheter was then placed under sterile technique. Weighted speculum was placed in the posterior vaginal vault, the anterior lip of the cervix was visualized and grasped with a single-tooth tenaculum. The endocervical canal was then dilated and a INAPPIN care uterine manipulator was advanced into the endometrial cavity as a means to manipulative uterus throughout this procedure. Cervical cap was placed snugly against the cervix and all instrument were removed from the patient's vaginal vault. Attention was then turned to the patient's abdomen where a proximally to finger breaths above the umbilicus a small skin incision is made. Through this incision the Veress needle is placed. Once the Veress needle was deemed to be in the proper position with a drop of CO2 pressure CO2 insufflation was allowed to occur. Approximately 3 L of gas or used to obtain pneumoperitoneum, at this time the incision was elongated to 12 mm and a 12 mm trocar and sleeve with the laparoscope in place placed through the skin incision and toward the pneumoperitoneum. The above-noted findings were visualized. At this time the additional port sites are placed at 10 cm lateral and 3 cm inferior to the midline port these are 8 mm operative ports to the da Pushpa machine. In the left upper quadrant a 12 mm trocar and sleeve is placed under direct visualization. The da Pushpa robot was docked in usual fashion. The operative arms are now placed in the right operative arm the monopolar scissors is placed in the left operative arm the bipolar forceps is placed. Attention was then turned to the patient's left utero-ovarian ligament this was coagulated distally and proximally and divided this continued through the broad toward the round which is coagulated and transected. Hemostasis was appreciated throughout. The bladder flap from the left was then created using sharp and blunt dissection. Attention then turned the patient's left adnexa where the fallopian tube was grasped and transected this was removed through the operative port. The utero- ovarian ligament was visualized coagulated distally and proximal plane divided. This continued through the broad and toward the round which is coagulated and transected hemostasis was appreciated once again. The bladder flap from the right was then created using sharp and blunt dissection. A Ray-Dom was passed into the abdomen as a means to further dissect the bladder away from the operative field. This was then removed. The descending branch of the uterine artery was then visualized coagulated distally and proximally divided. This was then repeated on the opposite side. At this time the only remaining attachment was a vaginal attachment therefore colpotomy incision was made in a circumdental fashion the uterus cervix were delivered through the vaginal opening. The vaginal cuff was then copiously irrigated and hemostasis was appreciated. The vaginal cuff was then closed in multiple [id number] sutures of 0 Vicryl. FloSeal was placed on the left-hand side of the vaginal cuff. Inspection the patient's abdomen revealed no further bleeding the right ureter was noted to be pulsating in the normal fashion. All instruments removed at this time. Attention was then turned to the Lopez catheter which was removed without difficulty and a cystoscopy was performed. The cystoscope was placed through the urethra toward the bladder bladder bubble was noted complete survey of the bladder revealed normal bladder mucosa and both ureteral orifices were spilling clear yellow urine. Cystoscopy fluid was removed and the Lopez catheter was replaced. Attention then turned the patient's abdomen where the skin incisions were closed with 4-0 Vicryl in a subcuticular fashion Steri-Strips and sterile dressings were applied. Lidocaine was injected at the end. All instruments were correct 2 patient tolerated procedure well and was taken the recovery room awake in stable condition.
[2019-04-19] MEDS: ACETAMINOPHEN IV (For NPO) 1,000 MG in EMPTY BAG 1 BAG IVPB ONE ×2 (09:29→10:00)
[2019-04-19] MEDS: HYDROmorphone 0.5 MG/0.5 ML SYRINGE IVP PRN ×2 (09:36→09:47)
[2019-04-19 10:43] VITALS: BMI 31.5
[2019-04-19] MEDS ORDERED: HYDROcodone/APAP 5-325MG 1 EACH TAB PO PRN (11:00)
[2019-04-19] MEDS ORDERED: IBUPROFEN IV 800 MG in SODIUM CHLORIDE 0.9% 250 ML IV ONE (11:00)
[2019-04-19 17:00] VITALS: RESP 16
[2019-04-19] MEDS: SENNOSIDES-DOCUSATE SODIUM 1 EACH TAB PO SCH (20:36)
[2019-04-20 07:04] LABS: Basophils # (A) 0.1 k/uL (0-0.2); Basophils % (A) 0 %; Eosinophils # (A) 0.1 k/uL (0-0.7); Eosinophils % (A) 1 %; HCT 39.2 % (34.0-46.0); HGB 12.8 gm/dL (11.4-16.0); Lymphocytes # (A) 3.3 k/uL (1.0-4.8); Lymphocytes % (A) 26 %; MCHC 32.6 g/dL (31.0-37.0); MCV 101.1 fL (80.0-100.0); Macrocytosis Slight; Mean Platelet Volume 10.1; Monocytes # (A) 0.4 k/uL (0-1.0); Monocytes % (A) 3 %; Neutrophils # (A) 8.8 k/uL (1.3-7.7); Neutrophils % (A) 69 %; Platelet Count 168 k/uL (150-450); RBC 3.88 m/uL (3.80-5.40); WBC 12.8 k/uL (3.8-10.6)
[2019-04-20 07:59] VITALS: BP 96/60; PULSE 52; TEMP 98.5
[2019-04-20] MEDS: SENNOSIDES-DOCUSATE SODIUM 1 EACH TAB PO SCH (08:01)
--- NOTE | 2019-04-20 08:32 | P.DS ---
Providers Date of admission: 04/19/2019 Expected date of discharge: 04/20/19 Attending physician: Nannette Cerrato Primary care physician: Milton Bravo - Discharge Diagnosis(es) (1) Pelvic pain Current Visit: Yes Status: Acute (2) Adenomyosis Current Visit: Yes Status: Acute Hospital Course: This is a pleasant 38-year-old female that was admitted on for planned robotic cyst vaginal hysterectomy, diagnostic cystoscopy. Patient had a history of an ablation done approximate 2 years ago which did cease her periods but she has noted cyclical pelvic pain. Patient desired definitive treatment with hysterectomy. I did suspect patient is post ablation syndrome. Ultrasound was done which ruled out hematometra. Patient was taken to the operating suite surgery was completed without difficulty for further details on the operation please see the operative report. Patient's postoperative course has been uneventful. She is a bleeding and voiding without difficulty on this postop day #1. She states her pain is well-controlled. She denies concerns she states she has positive flatus and no nausea or vomiting tolerating a regular diet. Patient Condition at Discharge: Good Plan - Discharge Summary Discharge Rx Participant: Yes New Discharge Prescriptions: No Action PARoxetine [Paxil] 20 mg PO QAM Dextroamphetamine/Amphetamine [Adderall] 30 mg PO DAILY Discharge Medication List Dextroamphetamine/Amphetamine [Adderall] 30 mg PO DAILY 07/31/17 [History] PARoxetine [Paxil] 20 mg PO QAM 07/31/17 [History] Follow up Appointment(s)/Referral(s): Nannette Cerrato DO [Doctor of Osteopathic Medicine] - 2 Weeks Patient Instructions/Handouts: Laparoscopic Hysterectomy (DC), Laparoscopic Hysterectomy (GEN) Activity/Diet/Wound Care/Special Instructions: No tub baths, swimming, intercourse until released by myself. Patient is to follow-up in 2 weeks for routine postoperative appointment. Discharge Disposition: HOME SELF-CARE
[2019-04-20] MEDS ORDERED: PARoxetine 20 MG TAB PO SCH (09:00)
== END 2019-04-20 10:45 | disposition home or self-care (01) ==
LOC: OR 05:46 → 4FBP 09:07 → OR 04-20 10:45
PROVIDERS: ATTEND Obstetrics & Gynecology Obstetrics
DX: N80.0 Endometriosis of uterus (principal); N83.8 Other noninflammatory disorders of ovary, fallopian tube and broad ligament; R10.2 Pelvic and perineal pain; N73.9 Female pelvic inflammatory disease, unspecified; E78.5 Hyperlipidemia, unspecified; J45.909 Unspecified asthma, uncomplicated; Z87.2 Personal history of diseases of the skin and subcutaneous tissue; K21.9 Gastro-esophageal reflux disease without esophagitis; F17.210 Nicotine dependence, cigarettes, uncomplicated; Z79.899 Other long term (current) drug therapy; Z88.0 Allergy status to penicillin; Z91.030 Bee allergy status
CPT/HCPCS: 58552; S2900; 81025; 85025; 86850; 86900; 86901; 88307

== ENCOUNTER 2019-10-17 06:06 | Emergency (ER) | payer BC ==
[2019-10-17 06:17] VITALS: RESP 18; TEMP 98.1
[2019-10-17] MEDS ORDERED: IPRATROPIUM-ALBUTEROL 3 ML NEB INHALATION STA (06:34)
[2019-10-17] MEDS ORDERED: methylPREDNISolone SOD SUCCI 125 MG/2 ML VIAL IV STA (06:34)
--- NOTE | 2019-10-17 06:38 | ED ---
General Adult HPI - General Chief complaint: Upper Respiratory Infection Stated complaint: Coughing up Blood Time Seen by Provider: 10/17/19 06:16 Source: patient, RN notes reviewed, old records reviewed Mode of arrival: ambulatory Limitations: no limitations - History of Present Illness Initial comments: Patient is a 38-year-old female, who presents emergency Department today with onset of coughing up blood this morning. Was treated for pneumonia, and influenza 2 weeks ago. She reports she's had a persistent cough. Today she noticed that she started to cough up blood. She is a smoker. Patient states that she has had intermittent chills and fever. She states that she has no leg swelling. She denies any abdominal pain nausea or vomiting. Patient reports family history of blood cause no personal history of blood clots. Patient states she is on hormonal control medication. - Related Data Home Medications Medication Instructions Recorded Confirmed Dextroamphetamine/Amphetamine 30 mg PO DAILY 07/31/17 04/12/19 [Adderall] PARoxetine [Paxil] 20 mg PO QAM 07/31/17 04/12/19 Previous Rx's Medication Instructions Recorded Albuterol Inhaler [Ventolin Hfa 1 - 2 puff INHALATION RT-Q6H PRN 10/17/19 Inhaler] #1 inhaler predniSONE 10 mg PO DAILY #15 tab 10/17/19 Allergies Allergy/AdvReac Type Severity Reaction Status Date / Time adhesive tape Allergy Rash/Hives Verified 10/17/19 06:19 amoxicillin Allergy Unknown Verified 10/17/19 06:18 epinephrine Allergy "black out" Verified 10/17/19 06:19 [From Epi E-Z Pen] latex Allergy Rash/Hives Verified 10/17/19 06:19 Penicillins Allergy Unknown Verified 10/17/19 06:18 bees Allergy Anaphylaxis Uncoded 10/17/19 06:18 Review of Systems ROS Statement: Those systems with pertinent positive or pertinent negative responses have been documented in the HPI. ROS Other: All systems not noted in ROS Statement are negative. Past Medical History Past Medical History: No Reported History History of Any Multi-Drug Resistant Organisms: None Reported Past Surgical History: Tubal Ligation, Uterine Ablation Additional Past Surgical History / Comment(s): D&C, colonoscopies x4. Past Anesthesia/Blood Transfusion Reactions: No Reported Reaction Past Psychological History: ADD/ADHD, Depression Smoking Status: Current every day smoker Past Alcohol Use History: None Reported Past Drug Use History: None Reported - Past Family History Mother Family Medical History: No Reported History General Exam - General Exam Comments Initial Comments: Well-appearing 38-year-old female. No distress. Limitations: no limitations General appearance: alert, in no apparent distress Head exam: Present: atraumatic, normocephalic, normal inspection Eye exam: Present: normal appearance, PERRL, EOMI. Absent: scleral icterus, conjunctival injection, periorbital swelling ENT exam: Present: normal exam, mucous membranes moist Neck exam: Present: normal inspection. Absent: tenderness, meningismus, lymphadenopathy Respiratory exam: Present: wheezes. Absent: normal lung sounds bilaterally, respiratory distress, rales, rhonchi, stridor Cardiovascular Exam: Present: regular rate, normal rhythm, normal heart sounds. Absent: systolic murmur, diastolic murmur, rubs, gallop, clicks GI/Abdominal exam: Present: soft, normal bowel sounds. Absent: distended, tenderness, guarding, rebound, rigid Extremities exam: Present: normal inspection, full ROM, normal capillary refill. Absent: tenderness, pedal edema, joint swelling, calf tenderness Back exam: Present: normal inspection Neurological exam: Present: alert, oriented X3, CN II-XII intact Psychiatric exam: Present: normal affect, normal mood Skin exam: Present: warm, dry, intact, normal color. Absent: rash Course Vital Signs 10/17/19 10/17/19 10/17/19 06:14 07:05 07:06 Temperature 98.1 F Pulse Rate 60 51 L Respiratory 18 18 18 Rate Blood Pressure 91/46 107/53 O2 Sat by Pulse 95 97 Oximetry Medical Decision Making - Medical Decision Making 38-year-old female presents with cough congestion, states that she has been having symptoms for 2 weeks. Today she no she coughed up small amount of blood. Some right-sided chest discomfort. Patient's labwork was reviewed and negative d-dimer. EKG is normal, no tachycardia. Patient's given breathing treatment and IV Solu-Medrol. On reevaluation she is resting comfortably in bed. Appears no distress. Vital signs continue to remain stable. At this time Patient was advised on smoking cessation for greater than 5 minutes. Discussed falling up with primary care doctor in regards to medication treatment about smoking cessation. Discussed treatment for bronchitis at this time with steroids and inhalers. Discussed return parameters. - Lab Data Result diagrams: 10/17/19 07:00 10/17/19 07:00 Lab Results 10/17/19 10/17/19 10/17/19 Range/Units 07:00 07:00 07:00 WBC 8.0 (3.8-10.6) k/uL RBC 4.22 (3.80-5.40) m/uL Hgb 13.4 (11.4-16.0) gm/dL Hct 40.7 (34.0-46.0) % MCV 96.5 (80.0-100.0) fL MCH 31.8 (25.0-35.0) pg MCHC 32.9 (31.0-37.0) g/dL RDW 13.1 (11.5-15.5) % Plt Count 183 (150-450) k/uL Neutrophils % 59 % Lymphocytes % 29 % Monocytes % 5 % Eosinophils % 5 % Basophils % 1 % Neutrophils # 4.7 (1.3-7.7) k/uL Lymphocytes # 2.3 (1.0-4.8) k/uL Monocytes # 0.4 (0-1.0) k/uL Eosinophils # 0.4 (0-0.7) k/uL Basophils # 0.0 (0-0.2) k/uL PT 10.7 (9.0-12.0) sec INR 1.0 (<1.2) APTT 27.1 (22.0-30.0) sec D-Dimer 0.30 (<0.60) mg/L FEU Sodium 141 (137-145) mmol/L Potassium 4.1 (3.5-5.1) mmol/L Chloride 112 H (98-107) mmol/L Carbon Dioxide 22 (22-30) mmol/L Anion Gap 7 mmol/L BUN 13 (7-17) mg/dL Creatinine 0.68 (0.52-1.04) mg/dL Est GFR (CKD-EPI)AfAm >90 (>60 ml/min/1.73 sqM) Est GFR (CKD-EPI)NonAf >90 (>60 ml/min/1.73 sqM) Glucose 109 H (74-99) mg/dL Calcium 9.2 (8.4-10.2) mg/dL 10/17/19 06:59 EKG shows sinus bradycardia, otherwise normal EKG. Ventricular rate of 51 bpm. Pulse 164 ms. QS duration is 88 ms. QT QTc is 456/420 ms. - Radiology Data Radiology results: report reviewed Chest x-rays negative for any acute process. Disposition Clinical Impression: Bronchitis Disposition: HOME SELF-CARE Condition: Good Instructions (If sedation given, give patient instructions): Acute Bronchitis (ED) Additional Instructions: Please use medication as discussed. Please follow up with family doctor if symptoms have not improved over the next two days. Please return to the emergency room if your symptoms increase or worsen or for any other concerns. Patient just stopped smoking. Use OTC cough and cold medication. Prescriptions: predniSONE 10 mg PO DAILY #15 tab Albuterol Inhaler [Ventolin Hfa Inhaler] 1 - 2 puff INHALATION RT-Q6H PRN #1 inhaler PRN Reason: Shortness Of Breath Is patient prescribed a controlled substance at d/c from ED?: No Referrals: Milton Bravo MD [Primary Care Provider] - 1-2 days Time of Disposition: 07:57
[2019-10-17 07:28] LABS: Basophils % (A) 1 %; Eosinophils # (A) 0.4 k/uL (0-0.7); Eosinophils % (A) 5 %; HCT 40.7 % (34.0-46.0); HGB 13.4 gm/dL (11.4-16.0); Lymphocytes # (A) 2.3 k/uL (1.0-4.8); Lymphocytes % (A) 29 %; MCH 31.8 pg (25.0-35.0); MCHC 32.9 g/dL (31.0-37.0); MCV 96.5 fL (80.0-100.0); Mean Platelet Volume 10.8; Monocytes # (A) 0.4 k/uL (0-1.0); Monocytes % (A) 5 %; Neutrophils # (A) 4.7 k/uL (1.3-7.7); Neutrophils % (A) 59 %; Platelet Count 183 k/uL (150-450); RBC 4.22 m/uL (3.80-5.40); RDW 13.1 % (11.5-15.5)
--- NOTE | 2019-10-17 07:34 | XR ---
EXAMINATION TYPE: XR chest 2V DATE OF EXAM: 10/17/2019 COMPARISON: 11/03/2014 HISTORY: Recent pneumonia. Hemoptysis. Right-sided pleurisy. TECHNIQUE: Frontal and lateral views of the chest are obtained. FINDINGS: There is no focal air space opacity, pleural effusion, or pneumothorax seen. The cardiac silhouette size is within normal limits. The osseous structures are intact. IMPRESSION: No acute cardiopulmonary process.
[2019-10-17 07:38] LABS: African American GFR (CKD) >90 (>60 ml/min/1.73 sqM); Anion Gap 7 mmol/L; Blood Urea Nitrogen 13 mg/dL (7-17); Calcium 9.2 mg/dL (8.4-10.2); Carbon Dioxide 22 mmol/L (22-30); Chloride 112 mmol/L (98-107); Glucose 109 mg/dL (74-99); Non-African American GFR(CKD) >90 (>60 ml/min/1.73 sqM); Potassium 4.1 mmol/L (3.5-5.1); Sodium 141 mmol/L (137-145)
[2019-10-17 07:43] LABS: D-Dimer 0.3 mg/L FEU (<0.60); Partial Thromboplastin Time 27.1 sec (22.0-30.0); Prothrombin Time 10.7 sec (9.0-12.0)
[2019-10-17 08:41] VITALS: PULSE 65
[2019-10-17 09:01] VITALS: BP 109/69
== END 2019-10-17 09:01 | disposition home or self-care (01) ==
LOC: EC 06:06
DX: J40 Bronchitis, not specified as acute or chronic (principal); Z71.6 Tobacco abuse counseling; F32.9 Major depressive disorder, single episode, unspecified; F90.9 Attention-deficit hyperactivity disorder, unspecified type; F17.200 Nicotine dependence, unspecified, uncomplicated; Z88.0 Allergy status to penicillin; Z88.8 Allergy status to other drugs, medicaments and biological substances; Z91.030 Bee allergy status; Z91.040 Latex allergy status; Z91.048 Other nonmedicinal substance allergy status; Z79.3 Long term (current) use of hormonal contraceptives; Z79.899 Other long term (current) drug therapy; Z87.01 Personal history of pneumonia (recurrent)
CPT/HCPCS: 99284; 96374; 99406; 36415; 94640; 93005; 85379; 80048; 85025; 85610; 85730; 71046; J2930

== ENCOUNTER 2022-09-11 10:10 | Emergency (ER) | payer BC, OTHER ==
[2022-09-11 10:17] VITALS: TEMP 98.2
--- NOTE | 2022-09-11 10:39 | ED ---
URI HPI - General Chief Complaint: Upper Respiratory Infection Stated Complaint: Headache,Congestion Time Seen by Provider: 09/11/22 10:19 Source: patient, RN notes reviewed Mode of arrival: ambulatory Limitations: no limitations - History of Present Illness Initial Comments: This is a 41-year-old female who presents to the emergency department for cough ing, congestion, and body aches. States that the symptoms started 3-4 days ago. She has minor associated shortness of breath. Also reports sinus pressure and nasal drainage. She was around her boyfriend's son who tested positive for RSV about a week ago. She denies any fevers. She's never been diagnosed with COPD or asthma, but states that she is a daily smoker. Denies any fevers, chills, sore throat, chest pain, palpitations, abdominal pain, nausea, vomiting, or diarrhea. MD Complaint: cough, nasal congestion Onset/Timin -: days(s) Context: sick contacts Treatments Prior to Arrival: none - Related Data Home Medications Medication Instructions Recorded Confirmed Fexofenadine HCl [Bianca Allergy] 180 mg PO HS 09/11/22 09/11/22 Previous Rx's Medication Instructions Recorded Albuterol Sulfate [Albuterol 2 puff PO Q6H PRN #8.5 gm 09/11/22 Sulfate Hfa] Promethazine/Dextromethorphan 5 ml PO Q4-6H PRN #473 ml 09/11/22 [Promethazine-Dm Syrup] predniSONE 50 mg PO DAILY 5 Days #5 tab 09/11/22 Allergies Allergy/AdvReac Type Severity Reaction Status Date / Time adhesive tape Allergy Rash/Hives Verified 09/11/22 10:51 amoxicillin Allergy Rash/Hives Verified 09/11/22 10:51 epinephrine Allergy "black out" Verified 09/11/22 10:51 [From Epi E-Z Pen] latex Allergy Rash/Hives Verified 09/11/22 10:51 Penicillins Allergy Rash/Hives Verified 09/11/22 10:51 bees Allergy Anaphylaxis Uncoded 10/29/19 16:31 Review of Systems ROS Statement: Those systems with pertinent positive or pertinent negative responses have been documented in the HPI. ROS Other: All systems not noted in ROS Statement are negative. Past Medical History Past Medical History: No Reported History History of Any Multi-Drug Resistant Organisms: None Reported Past Surgical History: Tubal Ligation, Uterine Ablation Additional Past Surgical History / Comment(s): D&C, colonoscopies x4. Past Anesthesia/Blood Transfusion Reactions: No Reported Reaction Past Psychological History: ADD/ADHD, Depression Smoking Status: Current every day smoker Past Alcohol Use History: Rare Past Drug Use History: Marijuana - Past Family History Mother Family Medical History: No Reported History General Exam Limitations: no limitations General appearance: alert, in no apparent distress Head exam: Present: atraumatic, normocephalic, normal inspection ENT exam: Present: normal exam, normal oropharynx, mucous membranes moist, TM's normal bilaterally, normal external ear exam Neck exam: Present: normal inspection. Absent: tenderness, meningismus, lymphadenopathy Respiratory exam: Present: normal lung sounds bilaterally. Absent: respiratory distress, wheezes, rales, rhonchi, stridor Cardiovascular Exam: Present: regular rate, normal rhythm, normal heart sounds. Absent: systolic murmur, diastolic murmur, rubs, gallop, clicks Back exam: Present: normal inspection, full ROM Neurological exam: Present: alert, oriented X3, CN II-XII intact Psychiatric exam: Present: normal affect, normal mood Skin exam: Present: warm, dry, intact, normal color. Absent: rash Course Vital Signs 09/11/22 09/11/22 10:14 12:17 Temperature 98.2 F Pulse Rate 69 76 Respiratory 20 18 Rate Blood Pressure 94/53 100/50 O2 Sat by Pulse 97 99 Oximetry Medical Decision Making - Medical Decision Making This is a 41-year-old female who presents to the emergency department with coughing, congestion, and body aches. Patient is positive for RSV. Chest x-ray obtained. My interpretation identifies no evidence of localized consolidations or infiltrates. IM Decadron was administered. Prescriptions for promethazine DM cough syrup, an albuterol inhaler, and prednisone were provided. Dosing instructions reviewed. Advised that the cough syrup can be sedating and she should take it at night until she knows how it effects her. She is otherwise instructed to remain well-hydrated and get plenty of rest. Return precautions reviewed in depth, the patient is instructed to return to the emergency department with any new, worsening, or concerning symptoms. Patient verbalized understanding. This case was discussed in detail with the attending ED physician. Presentation, findings, and treatment plan discussed in detail as well. - Lab Data Lab Results 09/11/22 Range/Units 10:34 Influenza Type A (PCR) Not Detected (Not Detectd) Influenza Type B (PCR) Not Detected (Not Detectd) RSV (PCR) Detected A (Not Detectd) SARS-CoV-2 (PCR) Not Detected (Not Detectd) - Radiology Data Radiology results: report reviewed, image reviewed Disposition Clinical Impression: RSV (respiratory syncytial virus infection) Disposition: HOME SELF-CARE Instructions (If sedation given, give patient instructions): Respiratory Syncytial Virus (ED) Additional Instructions: Return to the emergency department with any new, worsening, or concerning symptoms. Take the prednisone daily for 5 days. Both the inhaler and cough medicine can be used every 4-6 hours as needed. The cough medication can be sedating, and you should take it at night until you know how it affects you. You can also try sleeping next to cool mist for additional relief. An antihistamine or saline nasal spray can help dry up some of your mucus and help with the nasal drainage as well. Follow up with your primary care provider in 1-2 days. Prescriptions: Albuterol Sulfate [Albuterol Sulfate Hfa] 2 puff PO Q6H PRN #8.5 gm PRN Reason: Shortness Of Breath predniSONE 50 mg PO DAILY 5 Days #5 tab Promethazine/Dextromethorphan [Promethazine-Dm Syrup] 5 ml PO Q4-6H PRN #473 ml PRN Reason: Cough Is patient prescribed a controlled substance at d/c from ED?: No Referrals: Nonstaff,Physician [Primary Care Provider] - 1-2 days
[2022-09-11] MEDS ORDERED: DEXAMETHASONE SOD PHOSPHATE 10 MG/ML 1 ML VIAL IM STA (11:50)
--- NOTE | 2022-09-11 12:04 | XR ---
EXAMINATION TYPE: XR chest 2V DATE OF EXAM: 09/11/2022 COMPARISON: 10/17/2019 HISTORY: 41-year-old female cough and difficulty breathing, shortness of breath TECHNIQUE: PA and lateral views FINDINGS: Heart normal size. Aorta and pulmonary vasculature within normal limits. No consolidation or pleural effusion. IMPRESSION: No acute cardiopulmonary process.
[2022-09-11 12:18] VITALS: BP 100/50; PULSE 76; RESP 18
== END 2022-09-11 12:18 | disposition home or self-care (01) ==
LOC: EC 10:10
DX: R05.9 Cough, unspecified (principal); B97.4 Respiratory syncytial virus as the cause of diseases classified elsewhere; F32.A Depression, unspecified; F17.200 Nicotine dependence, unspecified, uncomplicated; F12.90 Cannabis use, unspecified, uncomplicated; Z91.048 Other nonmedicinal substance allergy status; Z88.0 Allergy status to penicillin; Z88.6 Allergy status to analgesic agent; Z91.040 Latex allergy status; Z91.030 Bee allergy status; Z20.822 Contact with and (suspected) exposure to COVID-19
CPT/HCPCS: 87636; 71046; 99284; 96372; J1100